=== PATIENT | male | born 1990 | race Caucasian/White ===

== ENCOUNTER 2025-07-27 14:06 | Inpatient (IN) | payer OTHER, SELFPAY ==
[2025-07-27 08:35] VITALS: BP 152/65
--- NOTE | 2025-07-27 08:38 | ED.GENMED ---
History of Present Illness
<SOLEDAD Muñoz - Last Filed: 07/27/25 12:53>
General
Chief Complaint: Facial Problem
Source: patient
Exam Limitations: none
Time Seen by Provider: 07/27/25 08:37
Nursing documentation reviewed up to this point in time: agreed with
History of Present Illness
History of Present Illness:
Patient is a 34-year-old male presents from [facility] for evaluation. Patient has a history of insulin-dependent diabetes drug abuse on Suboxone. He started 4 days ago with swelling to his left lateral lip area and 3 days
ago had swelling and redness to his left eye. He has been receiving oral Bactrim since Jul 24. Yesterday he received a dose of IV rocephin and vancomycin x1 dose each .
Past History
<SOLEDAD Muñoz - Last Filed: 07/27/25 12:53>
Past History
ED Past Medical History: IDDM and Psychiatric (Depression)
Social History
Tobacco: Smoker
Alcohol: None
Drug: None
Phy Exam
<SOLEDAD Muñoz - Last Filed: 07/27/25 12:53>
General Physical Exam
General Presentation: no apparent distress
General age: appears stated age
General Skin: warm and dry
General Habitus: normal
General Mental: alert
General Hydration: appears well hydrated
Eye Exam
Eye Exam: PERRL, EOMI and other (left eye with erythema/swelling to upper upper lip increased to lateral region )
Eye Exam General: PERRL: bilateral and EOM intact: bilateral
Pupil Exam: Bilateral: round and reactive
Neurological Exam
Neurological Exam: alert and oriented x3
Musculoskeletal Exam
Musculoskeletal Exam: full ROM
Skin Exam
Skin Exam: normal color, warm/dry and other (Mild swelling to left upper lip questional small pimple)
Psychiatric Exam
Psychiatric Exam: normal mood/affect
Course
<SOLEDAD Muñoz - Last Filed: 07/27/25 12:53>
Orders/Labs/Results
Orders:
Orders
07/27/25 08:52
CT Orbits With Iv Contrast Urgent
Comment:
Reason For Exam: left eye redness/swelling /pain
07/27/25 08:53
IV Insert/Care/Rem.- Treatment PRN
07/27/25 08:54
0.9% Sodium Chloride 1000 ml [Nss] 1,000 ml IV BOLUS
07/27/25 09:43
Ketorolac [Toradol] 15 mg IV NOW STA
07/27/25 10:31
Complete Blood Count/With Diff Urgent
07/27/25 10:32
Comprehensive Metabolic Panel Urgent
Blood Culture Q30M
FADUMO Source: Blood/Venous
Specimen Description:
07/27/25 10:35
Blood Culture Q30M
FADUMO Source: Blood/Venous
Specimen Description:
07/27/25 11:17
0.9% Sodium Chloride 1000 ml [Nss] 1,000 ml IV BOLUS
Vancomycin [Vancocin] 2,000 mg 0.9% Sodium Chloride 500 ml [Nss] 500 ml IV NOW
Abnormal Lab Results
07/27/25 07/27/25
10:31 10:32
RBC 4.68 L 10^6/uL
(4.70-6.10)
Sodium 134 L mmol/L
(135-145)
Glucose 309 H mg/dl
(70-99)
07/27/25 10:31
07/27/25 10:32
Vital Signs
Initial and Last Documented VS:
Initial Vital Signs
Temp Pulse Resp BP Pulse Ox
99.1 F 100 18 152/65 98
07/27/25 08:35 07/27/25 08:35 07/27/25 08:35 07/27/25 08:35 07/27/25 08:35
Last Documented Vital Signs
Temp Pulse Resp BP Pulse Ox
99.1 F 100 18 152/65 98
07/27/25 08:35 07/27/25 08:35 07/27/25 08:35 07/27/25 08:35 07/27/25 08:35
[employer] Chief consulted with Physician
[employer] Chief consulted with physician?: Yes
Name of Physician Consulted: dejan
<Master Stratton, DO - Last Filed: 07/27/25 11:46>
Orders/Labs/Results
Orders:
Orders
07/27/25 08:52
CT Orbits With Iv Contrast Urgent
Comment:
Reason For Exam: left eye redness/swelling /pain
07/27/25 08:53
IV Insert/Care/Rem.- Treatment PRN
07/27/25 08:54
0.9% Sodium Chloride 1000 ml [Nss] 1,000 ml IV BOLUS
07/27/25 09:43
Ketorolac [Toradol] 15 mg IV NOW STA
07/27/25 10:31
Complete Blood Count/With Diff Urgent
07/27/25 10:32
Comprehensive Metabolic Panel Urgent
Blood Culture Q30M
FADUMO Source: Blood/Venous
Specimen Description:
07/27/25 10:35
Blood Culture Q30M
FADUMO Source: Blood/Venous
Specimen Description:
07/27/25 11:17
0.9% Sodium Chloride 1000 ml [Nss] 1,000 ml IV BOLUS
Vancomycin [Vancocin] 2,000 mg 0.9% Sodium Chloride 500 ml [Nss] 500 ml IV NOW
Abnormal Lab Results
07/27/25 07/27/25
10:31 10:32
RBC 4.68 L 10^6/uL
(4.70-6.10)
Sodium 134 L mmol/L
(135-145)
Glucose 309 H mg/dl
(70-99)
07/27/25 10:31
07/27/25 10:32
Vital Signs
Initial and Last Documented VS:
Initial Vital Signs
Temp Pulse Resp BP Pulse Ox
99.1 F 100 18 152/65 98
07/27/25 08:35 07/27/25 08:35 07/27/25 08:35 07/27/25 08:35 07/27/25 08:35
Last Documented Vital Signs
Temp Pulse Resp BP Pulse Ox
99.1 F 100 18 152/65 98
07/27/25 08:35 07/27/25 08:35 07/27/25 08:35 07/27/25 08:35 07/27/25 08:35
<SOLEDAD Muñoz - Last Filed: 07/27/25 12:53>
MDM/Problems Addressed
Differential Diagnosis Includes:
not limited to:
Preorbital cellulitis hyperglycemia
MDM/Problems Addressed:
Patient is a 34-year-old male sent from [facility] for evaluation of swelling redness around the eye also swelling of the left lateral lip. He has been on antibiotics IV and had 1 dose of IV Rocephin and IV Vanco and oral Bactrim. This morning they
were not able to get IV access. He does have a history of IV drug use. Patient complains of worsening redness and swelling to the left lateral and anterior eyebrow. CAT scan does show periorbital cellulitis no abscess and inflammation of the left
lacrimal gland consistent also with dacryoadenitis. Patient in addition is a diabetic with elevated blood sugar here in the ER as high as 309. He was given fluids. With increasing redness and periorbital cellulitis along with diabetes
hyperglycemia would recommend admission.
Chronic conditions affecting care:
IDDM
<SOLEDAD Muñoz - Last Filed: 07/27/25 12:53>
*Radiology
Radiology exam reviewed: radiology read reviewed
*Pulse Oximetry
SaO2: 98
Oxygen Mode of Delivery: Room air
Patient hypoxic: no
*Critical Care Note
Total Time (30-74mins, 75-104mins- exclusive of procedures): Not Applicable
ED Attending Note
<SOLEDAD Muñoz - Last Filed: 07/27/25 12:53>
-
Portions of this chart may have been created with voice recognition software.� Occasional wrong word or��sound alike� substitutions may have occurred due to the inherent limitations of voice recognition software.
<Master Stratton DO - Last Filed: 07/27/25 11:46>
ED Attending Note
Patient seen and examined by attending physician: Yes
I performed the substantive portion of visit, reviewed & personally made and approve the management plan that is documented in note by myself or LIN.: Yes
ED Attending Note:
I have seen and evaluated the patient with a [id number] encounter. I have spoken to the advance practicer provider and involved in the medical history, the physical exam, medical decision making.
Evaluation and management service: agree unless noted differently below.
Results interpretation: agree unless noted differently below.
Focused HPI: 34-year-old male presenting from [facility] for evaluation of cellulitic changes around his left eye. This has been going going for a few days. Apparently, the facility actually gave him a IV dose of antibiotics
yesterday. They were having trouble with access today so they sent him in
Physical exam: Left periorbital cellulitis noted. No proptosis noted
Medical Decision Making: Given the persistent cellulitic changes in addition to uncontrolled diabetes, will admit for IV antibiotics
Discharge Plan
Departure
Patient Disposition: Admit
Date of Disposition: 07/27/25
Time of Disposition: 12:50
Admit to: Med/Surg
Admit to doctor: hospitalist
Presentation/result/management discussed w/ accepting MD/DO: Hospitalist
Patient with high blood pressure during this ER visit?: Yes
Condition: Fair
Covid-19: Not Applicable
Discharge Problem:
Periorbital cellulitis of left eye, Acute hyperglycemia
Prescriptions:
No Action
acetaminophen [Tylenol] 325 mg Tablet
650 mg PO BIDPRN PRN (Reason: mild pain)
ceftriaxone 1 gram Recon Soln
1 g IV DAILY
Rx Instructions:
give until 08/05/25
sulfamethoxazole-trimethoprim [Bactrim DS] 800-160 mg Tablet
1 tab PO BID
Rx Instructions:
take until 08/03/25
vancomycin 1,000 mg Recon Soln
1 g IV BID
Rx Instructions:
give until 08/05/25
Humulin R U-500 (Conc) Insulin 500 unit/mL Solution
0 unit SC AC
carboxymethylcellulose sodium [Refresh Tears] 0.5 % Drops
1 drp BOTH EYES BIDPRN PRN (Reason: dryness)
hydrocortisone 1 % Cream
1 applic TOPICAL BIDPRN PRN (Reason: rash)
ibuprofen [Advil] 200 mg Tablet
400 mg PO BIDPRN PRN (Reason: mild pain)
buprenorphine HCl 8 mg Tablet, Sublingual
24 mg SUBLINGUAL DAILY
insulin glargine [Lantus Solostar U-100 Insulin] 100 unit/mL (3 mL) Insulin Pen
16 unit SC HS
Referrals:
[facility] [Family Provider, General]
Interventions
Interventions:
*Risk Screen - Suicide Last Done: 07/27/25 08:39
*General Assessment Last Done: 07/27/25 08:39
*Neglect/Abuse Screening Last Done: 07/27/25 08:39
*ED COVID-19 Vaccine History Last Done: 07/27/25 08:39
*ED Influenza Vaccine History Last Done: 07/27/25 08:39
ED- Neurological Assessment Last Done: 07/27/25 08:58
ED-Skin Assessment Last Done: 07/27/25 08:58
Discharge Date and Time
Print Language: MOHAWK
[2025-07-27 08:40] VITALS: BMI 27.0
[2025-07-27] MEDS: NSS 1000 IV ×3 (09:43→18:18)
[2025-07-27] MEDS: TORADOL 15 MG IV (09:46)
[2025-07-27 10:55] LABS: ALT (SGPT) 17 U/L (0-50); AST (SGOT) 20 U/L (17-59); Albumin 4.7 g/dl (3.5-5.0); Alkaline Phosphatase 80 U/L (38-126); Blood Urea Nitrogen 11 mg/dl (9-20); Calcium 9.7 mg/dl (8.4-10.2); Carbon Dioxide 29 mmol/L (22-30); Chloride 101 mmol/L (98-107); Estimated Creatinine Clearance 109 ml/min; Glucose 309 mg/dl (70-99); Potassium 5.0 mmol/L (3.5-5.1); Sodium 134 mmol/L (135-145); Total Protein 7.6 g/dl (6.3-8.2); eGFR > 60.00
[2025-07-27 11:03] LABS: Hematocrit 39.8 % (39.0-52.0); Hemoglobin 14.0 g/dL (13.0-18.0); Mean Corp Hgb Conc. 35.2 g/dL (33.0-37.0); Mean Corpuscular Volume 85.0 fL (80.0-94.0); Nucleated Red Blood Cells % 0 % (-); Platelet Count 361 10^3/uL (130-400); Red Cell Dist. Width 13.1 % (11.5-14.5)
[2025-07-27] MEDS: VANCOCIN 540 MG IV (12:22)
--- NOTE | 2025-07-27 12:54 | HPS.HSE ---
Addendum entered and electronically signed by Mc Lowe MD 07/27/25 14:17:
Preoperative cellulitis
Vanco Zosyn
Blood cultures
Analgesics
Type 1 diabetes
Accu-Cheks
Sliding scale
Long-acting insulin
Carb controlled diet
History of drug abuse
Buprenorphine
Original Note:
Family Physician
-
Family Physician: Facility [facility]
Chief Complaint
-
left eyelid redness
History of Present Illness
34-year-old male with PMH for drug abuse, type 1 DM presented to us from correction facility presented to us with left eye redness and swelling since Thursday. it started off with with swelling of the left lateral lip.patient stated pain in the eye.
denied LAYNE, dizzy or syncope.denied fever, chills,chest pain,sob. denied abdominal pain,n,v,d. denied dysuria or hematuria. He has been receiving oral Bactrim since Jul 24. Yesterday he received a dose of IV Rocephin and vancomycin x1 dose each
.today they were not able to get iv access at correction facility.
Patient received a dose of Toradol, vancomycin in the ER. Patient received normal saline x 2 later in the ER. Blood culture sent from ER. Admitting for further management
Medical History
Past Medical History
Past Medical History: Reports Other
Additional Past Medical History:
Type 1 diabetes, drug abuse
Past Surgical History: Reports Other
Additional Past Surgical History:
Left clavicle surgery
Social History
Tobacco: Former Smoker
Alcohol: None
Drug: Former User
Living: Senior Living
Family History
Family History: Not pertinent
Allergies / Home Medications
Allergies reflects when Allergies were last updated in [facility].
Home Medications with original date entered in [facility]
Allergy/Medication List:
Allergies
Allergy/AdvReac Type Severity Reaction Status Date / Time
No Known Allergies Allergy Verified 07/27/25 08:40
Home Medications
acetaminophen 325 mg tablet (Tylenol) 650 mg PO BIDPRN PRN mild pain 07/27/25
buprenorphine HCl 8 mg sublingual tablet 24 mg sublingual DAILY 07/27/25
carboxymethylcellulose sodium 0.5 % eye drops (Refresh Tears) 1 drp BOTH EYES BIDPRN PRN dryness 07/27/25
ceftriaxone 1 gram intravenous solution 1 g IV DAILY 07/27/25
hydrocortisone 1 % topical cream 1 applic topical BIDPRN PRN rash 07/27/25
ibuprofen 200 mg tablet (Advil) 400 mg PO BIDPRN PRN mild pain 07/27/25
insulin glargine 100 unit/mL (3 mL) subcutaneous pen (Lantus Solostar U-100 Insulin) 16 unit SC HS Diabetes 07/27/25
insulin regular hum U-500 conc 500 unit/mL subcutaneous soln (Humulin R U-500 (Concentrated) Insulin) 0 unit SC AC 07/27/25
sulfamethoxazole 800 mg-trimethoprim 160 mg tablet (Bactrim DS) 1 tab PO BID Infection 07/27/25
vancomycin 1,000 mg intravenous injection 1 g IV BID 07/27/25
Review of Systems
-
Constitutional: Reports No Symptoms
EENT: Reports No Symptoms
Respiratory: Reports No Symptoms
Cardiac: Reports No Symptoms
Abdomen/GI: Reports No Symptoms
: Reports No Symptoms
Musculoskeletal: Reports No Symptoms
Skin: Reports Other (Left eye redness and swelling)
Neurological: Reports No Symptoms
Endocrine: Reports No Symptoms
Hematologic/Lymphatic: Reports No Symptoms
Psych: Reports No Symptoms
Physical Exam
Vital Signs
Vital Signs
Temp Pulse Resp BP Pulse Ox
99.1 F 100 18 152/65 98
07/27/25 08:35 07/27/25 08:35 07/27/25 08:35 07/27/25 08:35 07/27/25 12:53
Physical Exam
General: Well Developed, Well Nourished and No Apparent Distress
HEENT: NormoCephalic, Moist mucous membranes and Atraumatic
Respiratory: Clear
Cardiac: S1/S2 and Regular Rhythm; No Murmur or Rub
GI: Soft, Non Tender, Non Distended and Normal Bowel Sounds; No Organomegaly
Rectal: Deferred by Provider
Musculoskeletal: No Clubbing, No Cyanosis and No Edema
Skin: Rash and Other (left eye with erythema/swelling to upper upper lip increased to lateral region )
Neuro: AO x 3 and Nonfocal/grossly intact
Psych: Calm
Laboratory Results
-
07/27/25 10:31
07/27/25 10:32
Laboratory Results
Total Bilirubin 0.7 mg/dl (0.2-1.3) 07/27/25 10:32
AST 20 U/L (17-59) 07/27/25 10:32
ALT 17 U/L (0-50) 07/27/25 10:32
Alkaline Phosphatase 80 U/L (38-126) 07/27/25 10:32
Data Reviewed
-
CT Scan: Report Reviewed by me
Lab Data: Labs Reviewed by me
Impression/Plan
-
# Periorbital cellulitis
- IV Vanco,zosyn continued
-blood culture sent from ER
- Tylenol as needed for fever or pain
- Head orbit CT with the impression of Enlargement and significant inflammatory change involving the left lacrimal gland, consistent with dacryoadenitis.Subcutaneous inflammatory change within left periorbital soft tissues, suggestive of periorbital
cellulitis.
# Type 2 diabetes with hyperglycemia
- Blood sugar elevated in 300s
- Glargine 16 units continue
- Sliding scale
- CHO diet
-fluids continued
# History of drug abuse
- Buprenorphine
# DVT prophylaxis
- Lovenox
# CODE STATUS
- Full code
[2025-07-27 13:13] VITALS: BP 125/66
[2025-07-27] MEDS: ULTRAM 100 MG PO ×2 (16:05→22:28)
[2025-07-27 16:55] VITALS: BP 158/81; BMI 25.9
[2025-07-27] MEDS: TYLENOL 650 MG PO (18:17)
[2025-07-27] MEDS: ZOSYN 50 IV ×2 (18:19→23:56)
[2025-07-27] MEDS: LOVENOX 40 MG SC (18:19)
[2025-07-27] MEDS: NOVOLOG FLEXPEN-MODERATE RESISTANCE 3 UNITS SC (18:20)
[2025-07-27 18:27] LABS: Glucose - Point of Care 216 mg/dl (70-99)
--- NOTE | 2025-07-27 18:37 | PTCARENOTE ---
received pt and guards from ED approx 1730 to room 328. AOx3, VS obtained, pt oriented to room, bed in lowest position, follow plan of care
--- NOTE | 2025-07-27 19:32 | PHA.VAN.IN ---
Assessment
- Assessment
Renal Function: Appears similar to baseline
Concomitant Antimicrobials: PIPERACILLIN/TAZO
AUC Dosing Plan
- Dosing Variables
Dosing Weight (kg): 79.4
Dosing CrCl (ml/min): 117
Vd coefficient (L/kg): 0.7
- Empiric Dosing
Initial / Loading Dose: VANCO 2 GM IV ~ 1230 ( VANCO 1GM IV X1 ON 07/26)
Maintenance Regimen: VANCOMYCIN 750 IV Q8H
Estimated AUC (mcg*h/mL): 419
Estimated Peak (mcg*h/mL): 24.3
Estimated Trough (mcg/ml): 11.9
Estimated Half Life (H): 6.8
- Monitoring
No levels ordered at this time: Pharmacy will follow and order levels.
Pharmacokinetics Vancomycin I
- -
Patient Age: 34
Patient Sex: Male
Vancomycin Day #: 2
Indication: Skin And Soft Tissue
Requesting Provider: Prince ROWE
Height / Weight:
Height 5 ft 9 in
Actual Weight 79.435 kg
Pertinent Past Medical History: IDDM w. Preorbital cellulitis.
- Vital Signs / Lab Results
Temp Pulse Resp BP Pulse Ox
98.0 F 85 18 158/81 98
07/27/25 16:55 07/27/25 16:55 07/27/25 16:55 07/27/25 16:55 07/27/25 16:55
Lab Results - Hematology
07/27/25 07/27/25
09:32 10:31
WBC Cancelled 7.9
Lab Results - Chemistry
07/27/25 07/27/25
09:32 10:32
BUN Cancelled 11
Creatinine Cancelled 0.9
Estimated Creat Clear Cancelled 109
Albumin Cancelled 4.7
[2025-07-27 21:24] LABS: Glucose - Point of Care 318 mg/dl (70-99)
[2025-07-27] MEDS: SENOKOT 8.6 MG PO (21:25)
[2025-07-27] MEDS: LANTUS 0.16 UNITS SC (21:26)
[2025-07-27] MEDS: VANCOCIN 150 IV (21:27)
[2025-07-27 22:52] VITALS: BP 136/77
[2025-07-28] MEDS: NSS 1000 IV ×2 (05:25→17:37)
[2025-07-28] MEDS: ZOSYN 50 IV ×3 (05:26→17:37)
[2025-07-28] MEDS: VANCOCIN 150 IV ×3 (06:00→22:53)
[2025-07-28 06:44] LABS: Blood Urea Nitrogen 10 mg/dl (9-20); Calcium 8.9 mg/dl (8.4-10.2); Carbon Dioxide 26 mmol/L (22-30); Chloride 103 mmol/L (98-107); Estimated Creatinine Clearance > 125 ml/min; Glucose 202 mg/dl (70-99); Potassium 4.5 mmol/L (3.5-5.1); Sodium 134 mmol/L (135-145); eGFR > 60.00
[2025-07-28 06:48] LABS: Hematocrit 36.3 % (39.0-52.0); Hemoglobin 12.9 g/dL (13.0-18.0); Mean Corp Hgb Conc. 35.5 g/dL (33.0-37.0); Mean Corpuscular Volume 85.2 fL (80.0-94.0); Platelet Count 298 10^3/uL (130-400); Red Cell Dist. Width 12.8 % (11.5-14.5)
[2025-07-28 07:16] LABS: Glucose - Point of Care 225 mg/dl (70-99)
[2025-07-28 07:26] VITALS: BP 111/81
[2025-07-28] MEDS: SUBUTEX 24 MG SL (07:32)
[2025-07-28] MEDS: SENOKOT PO ×3 (07:35→23:02)
[2025-07-28] MEDS: NOVOLOG FLEXPEN-MODERATE RESISTANCE 3 UNITS SC ×3 (08:42→17:46)
--- NOTE | 2025-07-28 09:33 | PHA.VAN.FU ---
Vancomycin Assessment / Plan
- Assessment
Renal Function: Stable
WBC's are: WNL
In the past 24 hrs, patient has been: Afebrile
Concomitant Antimicrobials: piperacillin/tazobactam
- Dosing Plan
Continue: Vanc 750mg Q8H
- Monitoring Plan
No level(s) ordered at this time: consider levels in next few days
- Follow Up
Pharmacy will continue to follow.
Vancomycin Follow UP
- -
Patient Age: 34
Patient Sex: Male
Vancomycin Day #: 2
Indication: Skin And Soft Tissue
Requesting Provider: Prince ROWE / Dr. Byrd
Pertinent Antimicrobial Allergies:
NKDA
Height / Weight:
Height 5 ft 9 in
Actual Weight 79.435 kg
Pertinent Past Medical History: DM 2, Hx of LOIDA (buprenorphine)
- Vital Signs / Lab Results
Temp Pulse Resp BP Pulse Ox
98.0 F 87 18 111/81 97
07/28/25 07:26 07/28/25 07:26 07/28/25 07:26 07/28/25 07:26 07/28/25 07:26
Lab Results - Hematology
07/27/25 07/27/25 07/28/25
09:32 10:31 05:51
WBC Cancelled 7.9 6.2
Lab Results - Chemistry
07/27/25 07/27/25 07/28/25
09:32 10:32 05:51
BUN Cancelled 11 10
Creatinine Cancelled 0.9 0.8
Estimated Creat Clear Cancelled 109 > 125
Albumin Cancelled 4.7
[2025-07-28 11:16] LABS: Glycohemoglobin (HgbA1c) 10.2 % (4.0-5.9)
[2025-07-28 11:33] LABS: Glucose - Point of Care 235 mg/dl (70-99)
--- NOTE | 2025-07-28 15:05 | CON.ID ---
Addendum entered and electronically signed by Inocencia Byrd MD 07/28/25 16:05:
I personally performed a history and physical exam of the patient and discussed management with the resident. I reviewed the resident's note and agree with most of the documented findings and plan of care HPI/CC.
S: no visual loss, no eye pain with movement
Exam:
Left periorbital edema, erythema - most prominent lateral upper and lower eyelids. Conjunctiva clear. EOMI.
Left upper lip: small abscess
A/P
# Left preseptal cellulitis
# Small left upper lip abscess
# Left dacryoadenitis (by CT)
# Uncontrolled DM1, A1c 10
# Incarcerated.
# hx IVDU
- Blood cx neg to date
- Apply warm compress to lip abscess
- Continue Vancomycin and Zosyn.
- When clinically improve, will transition to po abx - most likely doxycycline and Augmentin.
- Recommend tight glucose control.
Original Note:
Consultation
-
Date/Time Consultation Requested: 07/28/25
Date/Time Consultation Performed: 07/28/25
Requesting Provider: Dr. Mc Lowe
Performing Provider: Dr. Inocencia Byrd
Reason for Consultation: Periorbital cellulitis
Chief Complaint / Past History
Chief Complaint
Eyelid swelling and pain
History of Present Illness
34-year-old male who presents with left eye redness, pain, swelling since 5 days. Pain started in his upper eyelid and soon started to encircle his left eye along with swelling. No previous similar clinical presentation. No preceding trauma. He
is a prisoner and the doctor in the group home prescribed him Bactrim on July 24 to try and relieve symptoms. However the symptoms have since gotten worse with the swelling and pain. He also states that he got swelling pain in his left lateral lip
at the same time when the eye symptoms started as well. He presented to the [place] emergency room on 07/27/2025 and received a dose of IV Rocephin and vancomycin. Vitals in the ED on admission were temperature of 99.1, pulse 100, respiratory
rate 18, BP 152/65, pulse ox 98. Blood cultures negative. Head/orbit CT done on admission showed dacryoadenitis of the left lacrimal gland and periorbital cellulitis of the left periorbital soft tissues. Was then started on Zosyn and vancomycin.
Past History
Additional Past Medical History:
Type 1 diabetes mellitus, former drug abuse
Additional Past Surgical History:
Left clavicular surgery
Allergy History:
No Known Allergies Allergy (Verified 07/27/25 08:40)
Medications Reviewed: Yes
Current Antibiotics:
Zosyn and vancomycin
Social History
Tobacco: Former Smoker
Alcohol: None
Drug: Former User
Personal: Single
Living: Group Home
Family History
Family History: Not Pertinent
Review of Systems
Review of Systems
General: Negative Fever or Chills
HEENT: Other (Left eye pain); Negative Lymphadenopathy or Stiff Neck
Cardiovascular: Negative Chest Pain or Dyspnea
Respiratory: Negative Dyspnea or Cough
Gasteroenterology: Negative Weight Loss, Nausea, Vomiting or Diarrhea
Endocrine: Negative Weight Change
Skin / Hair / Nails: Negative Rash
Neurological: Negative Headache or Dizziness
Vital Signs
Temp Pulse Resp BP Pulse Ox
98.0 F 87 18 111/81 97
07/28/25 07:26 07/28/25 07:26 07/28/25 07:26 07/28/25 07:26 07/28/25 07:26
Physical Exam
Physical Exam
Constitutional: No Acute Distress
Eyes: Pupils Equal, Pupils Round, Ocular Discharge and Other (No diplopia, blurry vision, vision loss, pain on extraocular movements of the left eye. )
Oral: Other (There is a healed wound on upper left part of lip. No drainage or bleeding.); Negative Poor Dentition
Cardiovascular: Regular Rate and S1/S2
Pulmonary: Clear and Symmetric
Skin: Warm and Dry
Neurological: AO x 3
Psychological: Calm
Lab / Diagnostic Study Results
07/28/25 05:51
07/28/25 05:51
Abs Immat Gran (auto) 0.0 10^3/uL (0-0.05) 07/27/25 10:31
Absolute Neuts (auto) 5.6 10^3/uL (1.4-6.5) 07/27/25 10:31
Absolute Lymphs (auto) 1.7 10^3/uL (1.2-3.4) 07/27/25 10:31
Absolute Monos (auto) 0.5 10^3/uL (0.1-0.6) 07/27/25 10:31
Absolute Basos (auto) 0.0 10^3/uL (0-0.2) 07/27/25 10:31
Immature Gran % 0.1 % (0-0.5) 07/27/25 10:31
Neutrophils % 70.6 % (42.2-75.2) 07/27/25 10:31
Lymphocytes % 21.9 % (20.5-51.1) 07/27/25 10:31
Monocytes % 5.9 % (1.7-9.3) 07/27/25 10:31
Eosinophils % 1.0 % (0-6) 07/27/25 10:31
Basophils % 0.5 % (0-2) 07/27/25 10:31
Microbiology Results
Micro:
07/27/25 10:35 Blood Culture - Preliminary
Blood/Venous No Growth in 24 hours- Final report to follow
07/27/25 10:32 Blood Culture - Preliminary
Blood/Venous No Growth in 24 hours- Final report to follow
07/28/25 02:06 MRSA Screen - Pending
Nose
Head/orbital CT on 07/27/2025:
IMPRESSION:
1. Enlargement and significant inflammatory change involving the left lacrimal gland, consistent with dacryoadenitis.
2. Subcutaneous inflammatory change within left periorbital soft tissues, suggestive of periorbital cellulitis
Assessment / Plan
Left periorbital cellulitis:
- Cause could possibly be bacteria originating from lip wound and spreading to periorbital area through touch, local trauma, or colonization with MRSA ( high risk since he came from group home)
- Continue Zosyn and vancomycin ( to cover for MRSA ) until we see clinical improvement such as reduction in swelling and pain, then switch to Augmentin as stepdown therapy for 7-10 days
- Better glucose control as patient's HbA1c is above 10
- Continue to trend temperature and CBC
[2025-07-28 15:08] VITALS: BP 120/64
[2025-07-28 16:37] LABS: Glucose - Point of Care 240 mg/dl (70-99)
--- NOTE | 2025-07-28 16:52 | W.PN.HOSP.TC ---
Today's Communication/Plan
-
Assessment / Plan
Assessment / Plan
NAD
Scleral Anicteric
Left periorbital area swollen and erythematous, left corner of the lip/maxillary portion swollen
MMM
No JVD
CTABL
RRR, S1/S2
Soft, NT, ND, BS+
Warm, Dry
AAOx3
Calm
Preseptal cellulitis
Vanco Zosyn
Blood cultures
Analgesics
Type 1 diabetes
Accu-Cheks
Sliding scale
Long-acting insulin
Carb controlled diet
History of drug abuse
Buprenorphine
Anticipated Discharge: > 48 hours
Subjective/Interval History
-
Date of Service: July 28, 2025
Seen and examined. No new complaints. No acute overnight events.
Objective Data
-
Labs:
Laboratory Results
07/28/25
05:51
WBC 6.2
Hgb 12.9 L
Hct 36.3 L
Plt Count 298
Sodium 134 L
Potassium 4.5
Chloride 103
Carbon Dioxide 26
BUN 10
Creatinine 0.8
Glucose 202 H
Calcium 8.9
Vital Signs:
Vital Signs
Temp Pulse Resp BP Pulse Ox
98.1 F 72 17 120/64 97
07/28/25 15:08 07/28/25 15:08 07/28/25 15:08 07/28/25 15:08 07/28/25 15:08
I&O
07/27/25 07/28/25 07/29/25
06:59 06:59 06:59
Intake Total 350 / 350 200 / 200
Balance 350 / 350 200 / 200
--- NOTE | 2025-07-28 17:00 | CM ---
Pt is custody of [facility] in [facility].
Plan: CM will follow for discharge planning needs.
[facility] Report: [phone]
[facility]
[2025-07-28] MEDS: LOVENOX SC (17:39)
[2025-07-28] MEDS: PERCOCET 5/325 1 TABLET PO (17:43)
[2025-07-28 21:47] LABS: Glucose - Point of Care 192 mg/dl (70-99)
[2025-07-28] MEDS: LANTUS 0.16 UNITS SC (22:54)
[2025-07-28] MEDS: ULTRAM 100 MG PO (23:04)
[2025-07-28 23:35] VITALS: BP 93/52
[2025-07-29] MEDS: ZOSYN 50 IV ×4 (00:46→18:27)
[2025-07-29] MEDS: NSS 1000 IV ×2 (05:32→18:24)
[2025-07-29] MEDS: VANCOCIN 150 IV ×3 (06:00→21:54)
[2025-07-29 07:05] LABS: Glucose - Point of Care 177 mg/dl (70-99)
[2025-07-29] MEDS: SUBUTEX 24 MG SL (07:23)
[2025-07-29] MEDS: SENOKOT PO ×2 (07:23→21:54)
[2025-07-29] MEDS: NOVOLOG FLEXPEN-MODERATE RESISTANCE 1 UNITS SC (07:58)
[2025-07-29 08:45] VITALS: BP 114/63
--- NOTE | 2025-07-29 10:21 | PHA.VAN.FU ---
Vancomycin Assessment / Plan
- Assessment
Renal Function: No New Labs Today
In the past 24 hrs, patient has been: Afebrile
Concomitant Antimicrobials: Piperacillin-tazobactam
- Dosing Plan
Continue: Vanc 750mg IV q8H
- Monitoring Plan
Peak Level: 07/30 0100
Trough Level: 07/30 0530
- Follow Up
Pharmacy will continue to follow.
Vancomycin Follow UP
- -
Patient Age: 34
Patient Sex: Male
Vancomycin Day #: 3
Indication: Skin And Soft Tissue
Requesting Provider: Prince ROWE / Dr. Byrd
Pertinent Antimicrobial Allergies:
NKDA
Height / Weight:
Height 5 ft 9 in
Actual Weight 79.435 kg
Pertinent Past Medical History: DM 2, Hx of LOIDA (buprenorphine)
- Vital Signs / Lab Results
Temp Pulse Resp BP Pulse Ox
98 F 84 20 114/63 97
07/29/25 08:45 07/29/25 08:45 07/29/25 08:45 07/29/25 08:45 07/29/25 08:45
Lab Results - Hematology
07/27/25 07/27/25 07/28/25
09:32 10:31 05:51
WBC Cancelled 7.9 6.2
Lab Results - Chemistry
07/27/25 07/27/25 07/28/25
09:32 10:32 05:51
BUN Cancelled 11 10
Creatinine Cancelled 0.9 0.8
Estimated Creat Clear Cancelled 109 > 125
Albumin Cancelled 4.7
Microbiology Results
07/28/25 02:06 MRSA Screen - Final
Nose Staph aureus MRSA
07/27/25 10:35 Blood Culture - Preliminary
Blood/Venous No Growth in 24 hours- Final report to follow
07/27/25 10:32 Blood Culture - Preliminary
Blood/Venous No Growth in 24 hours- Final report to follow
[2025-07-29 10:36] LABS: Blood Urea Nitrogen 12 mg/dl (9-20); Calcium 8.8 mg/dl (8.4-10.2); Carbon Dioxide 26 mmol/L (22-30); Chloride 103 mmol/L (98-107); Estimated Creatinine Clearance > 125 ml/min; Glucose 170 mg/dl (70-99); Potassium 4.1 mmol/L (3.5-5.1); Sodium 135 mmol/L (135-145); eGFR > 60.00
[2025-07-29 11:44] LABS: Glucose - Point of Care 284 mg/dl (70-99)
[2025-07-29] MEDS: NOVOLOG FLEXPEN-MODERATE RESISTANCE 5 UNITS SC (12:20)
--- NOTE | 2025-07-29 13:08 | W.PN.HOSP.TC ---
Today's Communication/Plan
-
Assessment / Plan
Assessment / Plan
NAD
Scleral Anicteric
Left periorbital area swollen and erythematous, left corner of the lip/maxillary portion swollen
MMM
No JVD
CTABL
RRR, S1/S2
Soft, NT, ND, BS+
Warm, Dry
AAOx3
Calm
Periorbital cellulitis
Vanco Zosyn
Blood cultures
Analgesics
Type 1 diabetes
A1c 10.3
Accu-Cheks
Sliding scale
Long-acting insulin
Carb controlled diet
History of drug abuse
Buprenorphine
Anticipated Discharge: > 48 hours
Subjective/Interval History
-
Date of Service: July 29, 2025
Seen and examined. No new complaints. No acute overnight events.
Objective Data
-
Labs:
Laboratory Results
07/29/25
07:32
Sodium 135
Potassium 4.1
Chloride 103
Carbon Dioxide 26
BUN 12
Creatinine 0.8
Glucose 170 H
Calcium 8.8
Vital Signs:
Vital Signs
Temp Pulse Resp BP Pulse Ox
98 F 84 20 114/63 97
07/29/25 08:45 07/29/25 08:45 07/29/25 08:45 07/29/25 08:45 07/29/25 08:45
I&O
07/28/25 07/29/25 07/30/25
06:59 06:59 06:59
Intake Total 350 / 350 2300 / 2300 50 / 50
Balance 350 / 350 2300 / 2300 50 / 50
[2025-07-29] MEDS: PERCOCET 5/325 1 TABLET PO (14:11)
--- NOTE | 2025-07-29 14:19 | W.PN.ID1 ---
Date of Service
Date of Service: July 29, 2025
Today's Communication
- asked micro for sensitivities from the MRSA nasal swab
- Apply warm compress to lip abscess
- Continue Vancomycin and Zosyn.
Assessment / Plan
A/P
# Left preseptal cellulitis
# Small left upper lip abscess
# Left dacryoadenitis and periorbital cellulitis (by CT)
# Uncontrolled DM1, A1c 10
# Incarcerated.
# hx IVDU
- Blood cx neg to date
- asked micro for sensitivities from the MRSA nasal swab
- Apply warm compress to lip abscess
- Continue Vancomycin and Zosyn.
- When clinically improve, will transition to po abx - most likely doxycycline and Augmentin.
- Recommend tight glucose control.
Chief Complaint
-: Other (preseptal cellulitis, lip abscess)
Subjective / Review of Systems
afebrile
bp stable
no events overnight
Vital Signs / Physical Exam
Vital Signs
Vital Signs
Temp Pulse Resp BP Pulse Ox
98 F 84 20 114/63 97
07/29/25 08:45 07/29/25 08:45 07/29/25 08:45 07/29/25 08:45 07/29/25 08:45
Physical Exam
Constitutional: No Acute Distress
Head: Other (slight swelling of the L superior lip)
Eyes: Other (slight swelling and induration of the L superior eyelid, no drainage)
Cardiovascular: Regular Rate and S1/S2; Negative Murmur or Rub
Pulmonary: Clear and Symmetric; Negative Wheezes or Rales
Gastrointestinal: Soft, Non Tender, Non Distended and Normal Bowel Sounds
Skin: Warm and Dry; Negative Rash or Jaundice
Objective Data
Lab Data
Lab Results
07/28/25 05:51
07/29/25 07:32
Estimated Creat Clear > 125 ml/min 07/29/25 07:32
Total Bilirubin 0.7 mg/dl (0.2-1.3) 07/27/25 10:32
AST 20 U/L (17-59) 07/27/25 10:32
ALT 17 U/L (0-50) 07/27/25 10:32
Alkaline Phosphatase 80 U/L (38-126) 07/27/25 10:32
Most recent labs reviewed.
a1c 10.2
Micro Results:
07/27/25 10:35 Blood Culture - Preliminary
Blood/Venous No Growth in 48 hours- Final report to follow
07/27/25 10:32 Blood Culture - Preliminary
Blood/Venous No Growth in 48 hours- Final report to follow
07/28/25 02:06 MRSA Screen - Final
Nose Staph aureus MRSA
[2025-07-29] MEDS: ULTRAM 100 MG PO (15:25)
[2025-07-29 16:36] VITALS: BP 173/74
[2025-07-29 16:51] LABS: Glucose - Point of Care 87 mg/dl (70-99)
[2025-07-29] MEDS: NOVOLOG FLEXPEN-MODERATE RESISTANCE SC (16:57)
[2025-07-29] MEDS: LOVENOX 40 MG SC (18:26)
[2025-07-29 21:06] LABS: Glucose - Point of Care 313 mg/dl (70-99)
[2025-07-29] MEDS: LANTUS 0.16 UNITS SC (21:52)
[2025-07-29] MEDS: NSS IV (21:53)
[2025-07-29 23:00] VITALS: BP 155/77
[2025-07-30] MEDS: ZOSYN 50 IV ×4 (00:08→17:50)
[2025-07-30] MEDS: NSS IV (00:13)
[2025-07-30] MEDS: NSS 1000 IV (06:04)
[2025-07-30] MEDS: VANCOCIN 150 IV ×3 (06:05→21:55)
[2025-07-30 06:29] LABS: Blood Urea Nitrogen 12 mg/dl (9-20); Calcium 8.7 mg/dl (8.4-10.2); Carbon Dioxide 25 mmol/L (22-30); Chloride 102 mmol/L (98-107); Estimated Creatinine Clearance > 125 ml/min; Glucose 163 mg/dl (70-99); Potassium 4.1 mmol/L (3.5-5.1); Sodium 135 mmol/L (135-145); eGFR > 60.00
[2025-07-30 07:05] VITALS: BP 120/79
[2025-07-30 07:12] LABS: Glucose - Point of Care 191 mg/dl (70-99)
[2025-07-30] MEDS: SUBUTEX 24 MG SL (07:18)
--- NOTE | 2025-07-30 07:30 | PHA.VAN.FU ---
Vancomycin Assessment / Plan
- Assessment
Renal Function: Stable
In the past 24 hrs, patient has been: Afebrile
Concomitant Antimicrobials: Piperacillin-tazobactam
- Assessment - Therapeutic Drug Monitoring
Extrapolated Cmax (mcg/mL): 28.1
Peak level was drawn: Appropriately
Extrapolated Cmin (mcg/mL): 11.1
Trough Drawn: Appropriately
Levels were drawn: At steady state
Calculated AUC (mcg*h/mL): 444
Calculated ke: 0.1321
Calculated half life (H): 5.2
Calculated Vd (L): 38.32
Calculated Vanc CL (ml/min): 84.41
- Dosing Plan
Continue: Vanc 750mg IV q8H
- Monitoring Plan
Level(s) appropriate: Recheck trough at minimum of weekly intervals, Repeat sooner for changes in renal function or clinical status
- Follow Up
Pharmacy will continue to follow.
Vancomycin Follow UP
- -
Patient Age: 34
Patient Sex: Male
Vancomycin Day #: 4
Indication: Skin And Soft Tissue
Requesting Provider: Prince ROWE / Dr. Byrd
Pertinent Antimicrobial Allergies:
NKDA
Height / Weight:
Height 5 ft 9 in
Actual Weight 79.435 kg
Pertinent Past Medical History: DM 2, Hx of LOIDA (buprenorphine)
- Vital Signs / Lab Results
Temp Pulse Resp BP Pulse Ox
97.8 F 81 16 120/79 98
07/30/25 07:05 07/30/25 07:05 07/30/25 07:05 07/30/25 07:05 07/30/25 07:05
Lab Results - Hematology
07/27/25 07/27/25 07/28/25
09:32 10:31 05:51
WBC Cancelled 7.9 6.2
Lab Results - Chemistry
1207/27/25 07/28/25
09:32 10:32 05:51
BUN Cancelled 11 10
Creatinine Cancelled 0.9 0.8
Estimated Creat Clear Cancelled 109 > 125
Albumin Cancelled 4.7
07/29/25 07/30/25
07:32 05:24
BUN 12 12
Creatinine 0.8 0.8
Estimated Creat Clear > 125 > 125
Albumin
Microbiology Results
07/27/25 10:35 Blood Culture - Preliminary
Blood/Venous No Growth in 48 hours- Final report to follow
07/27/25 10:32 Blood Culture - Preliminary
Blood/Venous No Growth in 48 hours- Final report to follow
07/28/25 02:06 MRSA Screen - Final
Nose Staph aureus MRSA
Therapeutic Drug Monitoring
Vancomycin Peak 20.1 ug/ml (18-26) 07/30/25 01:26
Vancomycin Trough 11.9 ug/ml (5-20) 07/30/25 05:24
[2025-07-30] MEDS: NOVOLOG FLEXPEN-MODERATE RESISTANCE 1 UNITS SC ×2 (08:00→16:41)
[2025-07-30] MEDS: SENOKOT PO ×2 (08:01→20:39)
[2025-07-30] MEDS: PERCOCET 5/325 1 TABLET PO (09:05)
[2025-07-30 11:52] LABS: Glucose - Point of Care 251 mg/dl (70-99)
[2025-07-30] MEDS: NOVOLOG FLEXPEN-MODERATE RESISTANCE 5 UNITS SC (12:42)
--- NOTE | 2025-07-30 13:43 | W.PN.HOSP.TC ---
Today's Communication/Plan
-
Assessment / Plan
Assessment / Plan
NAD
Scleral Anicteric
Left periorbital area swollen and erythematous, left corner of the lip/maxillary portion swollen
MMM
No JVD
CTABL
RRR, S1/S2
Soft, NT, ND, BS+
Warm, Dry
AAOx3
Calm
Periorbital cellulitis
Vanco Zosyn
Blood cultures
Analgesics
Type 1 diabetes
A1c 10.3
Accu-Cheks
Sliding scale
Long-acting insulin
Carb controlled diet
History of drug abuse
Buprenorphine
Anticipated Discharge: 24 - 48 hours
Subjective/Interval History
-
Date of Service: July 30, 2025
Seen and examined. No new complaints. No acute overnight events.
Objective Data
-
Labs:
Laboratory Results
07/30/25
05:24
Sodium 135
Potassium 4.1
Chloride 102
Carbon Dioxide 25
BUN 12
Creatinine 0.8
Glucose 163 H
Calcium 8.7
Vital Signs:
Vital Signs
Temp Pulse Resp BP Pulse Ox
97.8 F 81 16 120/79 98
07/30/25 07:05 07/30/25 07:05 07/30/25 07:05 07/30/25 07:05 07/30/25 07:05
I&O
07/29/25 07/30/25 07/31/25
06:59 06:59 06:59
Intake Total 2300 / 2300 2920 / 2920 390 / 390
Balance 2300 / 2300 2920 / 2920 390 / 390
--- NOTE | 2025-07-30 14:29 | W.PN.ID1 ---
Date of Service
Date of Service: July 30, 2025
Today's Communication
- Continue Vancomycin and Zosyn today, tomorrow switch to doxycycline and Augmentin.
Assessment / Plan
A/P
# Left preseptal cellulitis
# Small left upper lip abscess
# Left dacryoadenitis and periorbital cellulitis (by CT)
# Uncontrolled DM1, A1c 10
# Incarcerated.
# hx IVDU
- Blood cx neg to date
- asked micro for sensitivities from the MRSA nasal swab
- Apply warm compress to lip abscess
- Continue Vancomycin and Zosyn today, tomorrow switch to doxycycline and Augmentin.
- Recommend tight glucose control.
Chief Complaint
-: Other (preseptal cellulitis, lip abscess)
Subjective / Review of Systems
afebrile
bp stable
no events overnight
Vital Signs / Physical Exam
Vital Signs
Vital Signs
Temp Pulse Resp BP Pulse Ox
97.8 F 81 16 120/79 98
07/30/25 07:05 07/30/25 07:05 07/30/25 07:05 07/30/25 07:05 07/30/25 07:05
Physical Exam
Constitutional: No Acute Distress
Head: Other (minimal swelling of the L eyelid, scant crusting; superior lip scant swelling)
Cardiovascular: Regular Rate and S1/S2; Negative Murmur or Rub
Pulmonary: Clear and Symmetric; Negative Wheezes or Rales
Gastrointestinal: Soft, Non Tender, Non Distended and Normal Bowel Sounds
Skin: Warm and Dry; Negative Rash or Jaundice
Objective Data
Lab Data
Lab Results
07/28/25 05:51
07/30/25 05:24
Estimated Creat Clear > 125 ml/min 07/30/25 05:24
Total Bilirubin 0.7 mg/dl (0.2-1.3) 07/27/25 10:32
AST 20 U/L (17-59) 07/27/25 10:32
ALT 17 U/L (0-50) 07/27/25 10:32
Alkaline Phosphatase 80 U/L (38-126) 07/27/25 10:32
Most recent labs reviewed.
Micro Results:
07/28/25 02:06 MRSA Screen - Preliminary
Nose Staph aureus MRSA
07/27/25 10:35 Blood Culture - Preliminary
Blood/Venous No Growth in 72 hours- Final report to follow
07/27/25 10:32 Blood Culture - Preliminary
Blood/Venous No Growth in 72 hours- Final report to follow
[2025-07-30 15:33] VITALS: BP 104/62
[2025-07-30 16:42] LABS: Glucose - Point of Care 195 mg/dl (70-99)
[2025-07-30] MEDS: LOVENOX 40 MG SC (17:50)
[2025-07-30 21:01] LABS: Glucose - Point of Care 309 mg/dl (70-99)
[2025-07-30] MEDS: NOVOLOG FLEXPEN 8 UNITS SC (21:55)
[2025-07-30] MEDS: LANTUS 0.16 UNITS SC (21:55)
[2025-07-30 23:00] VITALS: BP 107/71
[2025-07-31 00:02] LABS: Glucose - Point of Care 40 mg/dl (70-99)
[2025-07-31 00:19] LABS: Glucose - Point of Care 78 mg/dl (70-99)
[2025-07-31 03:03] LABS: Glucose - Point of Care 369 mg/dl (70-99)
[2025-07-31 07:30] LABS: Hematocrit 39.0 % (39.0-52.0); Hemoglobin 14.1 g/dL (13.0-18.0); Mean Corp Hgb Conc. 36.2 g/dL (33.0-37.0); Mean Corpuscular Volume 86.1 fL (80.0-94.0); Platelet Count 352 10^3/uL (130-400); Red Cell Dist. Width 12.4 % (11.5-14.5)
[2025-07-31 07:42] LABS: Glucose - Point of Care 267 mg/dl (70-99)
[2025-07-31 07:49] LABS: Blood Urea Nitrogen 12 mg/dl (9-20); Calcium 9.4 mg/dl (8.4-10.2); Carbon Dioxide 31 mmol/L (22-30); Chloride 100 mmol/L (98-107); Estimated Creatinine Clearance > 125 ml/min; Glucose 293 mg/dl (70-99); Sodium 135 mmol/L (135-145); eGFR > 60.00
[2025-07-31] MEDS: AUGMENTIN 875 MG/125 MG 1 TABLET PO (07:49)
[2025-07-31] MEDS: SUBUTEX 24 MG SL (07:49)
[2025-07-31] MEDS: VIBRAMYCIN 100 MG PO (07:49)
[2025-07-31] MEDS: SENOKOT 8.6 MG PO (07:51)
[2025-07-31 07:56] LABS: Potassium 4.9 mmol/L (3.5-5.1)
[2025-07-31 08:08] VITALS: BP 121/68
[2025-07-31] MEDS: NOVOLOG FLEXPEN-MODERATE RESISTANCE 5 UNITS SC (08:38)
--- NOTE | 2025-07-31 11:07 | W.PN.HOSP.TC ---
Today's Communication/Plan
-
Adjust insulin
Discharge
Assessment / Plan
Assessment / Plan
Gen-AAOx3, NAD
HEENT-NC, AT, anicteric, clear oral mm
Neck-supple
CV-reg, no M, +S1/S2
Lungs-clear B/L
Abd-soft, NT, ND
Ext-no edema
Musculoskeletal-no cyanosis, clubbing
Skin-warm and dry
Neuro-grossly non-focal
Psych-calm, cooperative
Left-sided acute periorbital cellulitis -improved clinically. Now on oral antibiotics per ID.
DM1 with hyperglycemia/hypoglycemia -glucoses remain uncontrolled. Glucose 293 this morning. Glucose 40 around midnight last night. Hemoglobin A1c 10.2%.
Currently on Lantus 16 units at bedtime, moderate resistance NovoLog scale.
Suspect the 8 units of aspart correction dose caused hypoglycemia last night.
Will change corrective aspart scale to low dose
Add 2u Aspart AC, which was his previous dose in past.
Close outpatient follow-up with PCP after discharge.
History of drug abuse
Buprenorphine
Full code
Dispo -medically stable for discharge back to [facility] today.
32 minutes spent in discharge process.
Anticipated Discharge: Today
Subjective/Interval History
-
Date of Service: July 31, 2025
Patient seen and examined. Feeling better overall. No complaints.
Objective Data
-
Labs:
Laboratory Results
07/31/25
06:58
WBC 5.5
Hgb 14.1
Hct 39.0
Plt Count 352
Sodium 135
Potassium 4.9
Chloride 100
Carbon Dioxide 31 H
BUN 12
Creatinine 0.8
Glucose 293 H
Calcium 9.4
Vital Signs:
Vital Signs
Temp Pulse Resp BP Pulse Ox
97.7 F 76 18 121/68 97
07/31/25 08:08 07/31/25 08:08 07/31/25 08:08 07/31/25 08:08 07/31/25 08:08
I&O
07/30/25 07/31/25 08/01/25
06:59 06:59 06:59
Intake Total 2920 / 2920 2400 / 2400
Balance 2920 / 2920 2400 / 2400
Review of Systems
-
History Source: Patient
All other systems: Reviewed and negative
[2025-07-31 11:33] LABS: Glucose - Point of Care 275 mg/dl (70-99)
--- NOTE | 2025-07-31 11:34 | W.DS.TRANS ---
DC Summary - Returner
-
Discharge Instructions:
Discharge Diagnosis/Procedures Left periorbital cellulitis, uncontrolled
diabetes
Diet Diabetic, Carb Controlled
Activity As tolerated
Driving Restrictions As prior to admission
Bathing Restrictions None
Instructions:
Stand-Alone Forms:
Changes to Home Medications: No
Discharge Medications:
DC Medications w/original date entered in [facility]
acetaminophen 325 mg tablet (Tylenol) 650 mg PO BIDPRN PRN mild pain 07/27/25
buprenorphine HCl 8 mg sublingual tablet 24 mg sublingual DAILY LOIDA 07/27/25
carboxymethylcellulose sodium 0.5 % eye drops (Refresh Tears) 1 drp BOTH EYES BIDPRN PRN dry eyes 07/27/25
hydrocortisone 1 % topical cream 1 applic topical BIDPRN PRN rash 07/27/25
ibuprofen 200 mg tablet (Advil) 400 mg PO BIDPRN PRN mild pain 07/27/25
insulin glargine 100 unit/mL (3 mL) subcutaneous pen (Lantus Solostar U-100 Insulin) 16 unit SC HS Diabetes 07/27/25
amoxicillin 875 mg-potassium clavulanate 125 mg tablet 1 tab PO Q12 #0 tabs 07/31/25
insulin aspart U-100 100 unit/mL (3 mL) subcutaneous pen 2 unit (0.02 mL) SC AC #0 mL 07/31/25
sulfamethoxazole 800 mg-trimethoprim 160 mg tablet (Bactrim DS) 1 tab PO BID Infection #0 tabs 07/31/25
Home Medication Changes
Pending Results: No
--- NOTE | 2025-07-31 11:41 | W.PN.ID1 ---
Addendum entered and electronically signed by Inocencia Byrd MD 07/31/25 12:04:
I saw and evaluated the patient. I reviewed the resident�s note and agree with most of the findings and plan as documented in the resident�s note.
A/P
# Left preseptal cellulitis- significantly improved
# Small left upper lip abscess - improving
# Left dacryoadenitis and periorbital cellulitis (by CT)
# Uncontrolled DM1, A1c 10
# MRSA colonized
# Incarcerated.
# hx IVDU
- Blood cx neg to date
- Dr. Dyson asked micro for sensitivities from the MRSA nasal swab -> resistant to doxycycline
- s/p Vanco/Zosyn
- DC doxycycline
- Can dc on Bactrim DS 1 tab bid and Augmentin 875mg po bid through 08/09/25.
- Recommend tight glucose control.
Discussed with Dr. Isabel
Original Note:
Date of Service
Date of Service: July 31, 2025
Today's Communication
- switch to Bactrim and Augmentin
Assessment / Plan
Left periorbital cellulitis
Small left upper lip abscess
Uncontrolled Type 1 DM:
- On physical exam, his erythema/ swelling/ and pain has improved considerably
- Cause could possibly be bacteria originating from lip wound and spreading to periorbital area through touch, local trauma, or colonization with MRSA ( high risk since he came from [facility])
- Today will start patient on Bactrim and Augmentin through 08/10/25. His MRSA sensitivities show a resistance to tetracyclines.
- His glucose is 293 today. Better glucose control.
- Continue to trend temperature and CBC
Chief Complaint
-: Other (preseptal cellulitis, lip abscess)
Subjective / Review of Systems
Review of Systems: No Fever, No Chills, No Headache, No Stiff Neck, No Cough, No Chest Pain, No Nausea, No Vomiting, No Diarrhea and No Skin Rash
Vital Signs / Physical Exam
Vital Signs
Vital Signs
Temp Pulse Resp BP Pulse Ox
97.7 F 76 18 121/68 97
07/31/25 08:08 07/31/25 08:08 07/31/25 08:08 07/31/25 08:08 07/31/25 08:08
Physical Exam
Constitutional: No Acute Distress
Eyes: Pupils Equal and Other (Swelling and erythema of left periorbital area has decreased from previous examination); Negative No Conjunctival Hemorrhage, Erythema or Ocular Discharge
Cardiovascular: Regular Rate and S1/S2
Pulmonary: Clear and Symmetric
Gastrointestinal: Soft, Non Tender, Non Distended and Normal Bowel Sounds
Extremities: Negative Edema, Clubbing or Cyanosis
Skin: Warm and Dry
Neurological: AO x 3
Psychological: Calm
Objective Data
Lab Data
Lab Results
07/31/25 06:58
07/31/25 06:58
Estimated Creat Clear > 125 ml/min 07/31/25 06:58
Total Bilirubin 0.7 mg/dl (0.2-1.3) 07/27/25 10:32
AST 20 U/L (17-59) 07/27/25 10:32
ALT 17 U/L (0-50) 07/27/25 10:32
Alkaline Phosphatase 80 U/L (38-126) 07/27/25 10:32
Most recent labs reviewed.
Microbiology: Report Reviewed
Micro Results:
07/27/25 10:35 Blood Culture - Preliminary
Blood/Venous No Growth in 4 days- Final report to follow
07/27/25 10:32 Blood Culture - Preliminary
Blood/Venous No Growth in 4 days- Final report to follow
07/28/25 02:06 Environmental Culture - Final
Nose Staph aureus MRSA
MRSA Screen - Final
Staph aureus MRSA
CT Scan: Report Reviewed
[2025-07-31] MEDS: FLUZONE (6 mos+) 2025-2026 FORMULA 0.5 ML IM (12:06)
[2025-07-31] MEDS: NOVOLOG FLEXPEN 2 UNITS SC (12:11)
[2025-07-31] MEDS: NOVOLOG FLEXPEN-LOW RESISTANCE 3 UNITS SC (12:11)
--- NOTE | 2025-07-31 12:21 | CM ---
Pt is cleared for discharge back to [facility] today.
Doris Wright notified of pt's pending discharge back to [facility].
[facility] Report: [phone]
[facility]
[2025-07-31 13:24] VITALS: BP 125/84
== END 2025-07-31 13:35 | DRG 603 ==
LOC: 3 WEST ACU 14:06
PROVIDERS: Nurse Practitioner; Registered Nurse; ADMITTING PHYSICIAN Hospitalist; ATTENDING PHYSICIAN Hospitalist; EMERGENCY PHYSICIAN Student in an Organized Health Care Education/Training Program; OTHER PHYSICIAN Internal Medicine Infectious Disease
PROC: 3E02340 Introduction of Influenza Vaccine into Muscle, Percutaneous Approach (ICD-10-PCS; 2025-07-31)
DX: L03.213 Periorbital cellulitis (principal); E10.65 Type 1 diabetes mellitus with hyperglycemia; E10.649 Type 1 diabetes mellitus with hypoglycemia without coma; K13.0 Diseases of lips; F17.200 Nicotine dependence, unspecified, uncomplicated; F32.A Depression, unspecified; Z79.4 Long term (current) use of insulin; Z23 Encounter for immunization
CPT/HCPCS: 70481; 80048; 80053; 80202; 82962; 83036; 85025; 85027; 87040; 87070; 87147; 87186; 90656; 96361; 96365; 96366; 96375; 99284; G0008; Q9967